=== PATIENT | female | born 1945 | race Two or more races ===

== ENCOUNTER 2022-09-18 12:54 | Outpatient (AMB) | payer OTHER, SELFPAY ==
--- NOTE | 2022-09-18 13:36 | AM.OFFWIN_ITS ---
Intake Vital Signs 09/18/22 13:41 Height 4 ft 9 in Weight 125 lb BMI 27.0 BP 130/80 Blood Pressure Location Lt brachial Position Sitting Pulse 85 Pulse Source Pulse Oximeter Pulse Oximetry (%) 96 Oxygen Delivery Method Room Air Intake Visit Reasons: [employer]/ear pain Intake Note: Patient here for left ear pain, she states it is swollen as she is unable to put a qtip in it, pain is starting to go into jaw-hurts when she opens her mouth since yesterday afternoon. she has a hx of this happening in the past. Patient Tobacco Use Status: Never used Tobacco Allergies sulfamethoxazole [From Bactrim] Allergy (Mild, Verified 09/18/22 13:40) Unknown trimethoprim [From Bactrim] Allergy (Mild, Verified 09/18/22 13:40) Unknown acetaminophen [From Percocet] Adverse Reaction (Mild, Verified 09/18/22 13:40) Hives oxycodone [From Percocet] Adverse Reaction (Mild, Verified 09/18/22 13:40) Hives Do you need a note to return to daycare/school/sports/work: No HPI HPI Comments History of Present Illness Details This is a 77-year-old female who presents to the office today for a sick visit. The patient reporting left ear pain and swelling x1 day. She states she was in her usual state of health until yesterday after she woke up from a nap. She noticed that her left ear was painful and felt swollen. She attempted to clean out the ear with a Q-tip I was unable to insert a Q-tip due to swelling. Patient denies any otorrhea. She denies any fever/chills. She denies any known sick contacts. [facility] Social History Patient Tobacco Use Status: Never used Tobacco Review of Systems Const All systems reviewed & are unremarkable except as noted in HPI and below Denies chills and Denies fever(s) Eyes Reports no additional complaints ENT Reports as per HPI, Denies ear discharge and Reports otalgia Card Reports no additional complaints Resp Reports no additional complaints GI Reports no additional complaints Reports no additional complaints Musc Reports no additional complaints Skin/Breast Reports system reviewed and no additional complaints, except as documented Neuro Reports no additional complaints Psych Reports no additional complaints Physical Exam Vital Signs: Last Vital Signs Pulse 85 09/18/22 13:41 BP 130/80 09/18/22 13:41 Pulse Ox 96 09/18/22 13:41 Oxygen Delivery Method Room Air 09/18/22 13:41 BMI result Body Mass Index 27.0 Const General: cooperative and healthy appearing Orientation/consciousness: patient oriented x3 HEENT Other: Swelling and erythema of the left external auditory canal. Unable to visualize left TM due to swelling. No mastoid tenderness to palpation. Head: Yes normal to inspection Ears: hearing grossly normal bilaterally General nose exam: Normal external nose present Face and sinus: Yes normal facial exam Mouth: Normal oral and palatal mucosa present, oropharynx normal and moist mucous membranes Throat: Yes posterior oropharynx normal, Yes tonsils normal, Yes uvula midline and No peritonsillar mass Eyes General: appearance normal, both eyes and all related structures Pupils: Equal, round and reactive pupils present EOM: EOMs intact bilaterally Neck Neck: Yes normal visual inspection, Yes full ROM and Yes no lymphadenopathy Resp Effort & Inspection: normal respiratory effort Auscultation: clear to auscultation bilaterally Cardio Rate: regular rate Rhythm: regular rhythm Heart sounds: no gallops, no murmurs and no rubs Skin Other: No erythema of the external ear. Neuro General: patient oriented x3 Cranial nerves: Yes Equal, round and reactive pupils present Assessment & Plan Assessment & Plan (1) Otitis externa: Code(s): H60.90 - Unspecified otitis externa, unspecified ear (2) Otitis media: Code(s): H66.90 - Otitis media, unspecified, unspecified ear Plan This is a 77-year-old female presenting with left ear pain and swelling. History and physical most consistent with otitis externa of left ear. Patient also likely has otitis media of the left ear, the TM unable to be visualized due to swelling of the external auditory canal. No evidence of acute mastoiditis. Patient started on lhmxkfbs-boklagaaw-djkxhijlapyjij ear drops for treatment of otitis externa and p.o. amoxicillin clavulanate twice daily x7 days for treatment of acute otitis media. Patient instructed to follow-up here or go to the emergency room for fever/chills, unilateral neck swelling, or persistent/worsening symptoms. Patient verbalizes her understanding and she is agreeable with the plan. Medications: New qpvxkuda-dklgkxbhs-DJ 3.5-10,000-1 mg/mL-unit/mL-% 4 drps otic (ear) left Q8H 10 mL 0RF amoxicillin-pot clavulanate 875-125 mg 1 tab PO BID 14 tabs 0RF Coding Level of Care Code New Pt Level 3 (24458) Diagnoses Otitis externa H60.90 Otitis media H66.90
[2022-09-18 13:41] VITALS: BP 130/80; PULSE 85; O2SAT 96; BMI 27.0
== END 2022-09-18 13:55 | disposition home or self-care (01) ==
PROVIDERS: PCP Internal Medicine; Visit Provider Physician Assistant Medical
DX: H60.92 Unspecified otitis externa, left ear (principal); H66.92 Otitis media, unspecified, left ear
CPT/HCPCS: 99203